=== PATIENT | female | born 1955 | race Caucasian/White ===

== ENCOUNTER 2018-10-01 09:23 | Outpatient (CLI) | payer OTHER ==
--- NOTE | 2018-10-01 10:31 | Diagnostic Imaging Report ---
Indication: Cough Technique: 2 views of the chest Comparison: None Findings: Lungs and pleural spaces are clear. The heart size is normal. The bones are unremarkable. Impression: Negative
== END 2018-10-01 11:23 | disposition home or self-care (01) ==
LOC: RAD 09:23
DX: Z01.818 Encounter for other preprocedural examination (principal); R05 Cough; J44.9 Chronic obstructive pulmonary disease, unspecified
CPT/HCPCS: 71046